=== PATIENT | female | born 1930 | race Caucasian/White ===

== ENCOUNTER 2016-06-21 13:13 | Inpatient (IN) | payer OTHER, MEDICAID ==
[~2016-06-21] VITALS: Ht 162.6 cm; Wt 40.8 kg
[2016-06-21] MEDS: PANTOPRAZOLE 80 MG in NACL 0.9% 100 ML IV SCH (03:44)
[~2016-06-21 13:13] MED LIST: AMLODIPINE BESYL5 MG PO; ASPI-COR81 M1 PO; CLONAZEPAM0.5 M2 PO; LEVOTHYROXIN0.088 M1 PO; VERAPAMIL HCL180 M5 PO; ZOCOR20 M1 PO
[2016-06-21 13:23] VITALS: BP 121/68
--- NOTE | 2016-06-21 14:23 | NUR ---
Patient ambulated to bed 03.
--- NOTE | 2016-06-21 14:27 | NUR ---
LAB AT BEDSIDE.
--- NOTE | 2016-06-21 14:40 | NUR ---
PT REFERRED FROM PCP FOR EVALUATION OF ABNORMAL LABS, HGB 5.0. HX HTN, ANXIETY, MULTIPLE DVT'S IN LEFT LEG, ON COUMADIN; DENIES N/V/D; SKIN IS PINK/WARM/DRY; AAOX4 WITH EVEN AND STEADY GAIT; LUNGS CLEAR BL; HR EVEN AND REGULAR; PT DENIES ANY FEVER, CP, SOB, OR COUGH AT THIS TIME; PATIENT STATES LOW BACK PAIN OF 5/10 AT THIS TIME; VSS; PATIENT POSITIONED FOR COMFORT; HOB ELEVATED; BEDRAILS UP X2; BED DOWN. ER MD MADE AWARE OF PT STATUS.
--- NOTE | 2016-06-21 14:42 | NUR ---
Dr. Hester evaluating patient at bedside.
[2016-06-21] MEDS ORDERED: NACL 0.9% 250 ML IV ONE (15:00)
[2016-06-21] MEDS ORDERED: NACL 0.9% 500 ML IV ONE (15:00)
--- NOTE | 2016-06-21 15:45 | NUR ---
TRIED TO GIVE REPORT, WILL CALL BACK IN 10 MIN PER RN RAMIN
--- NOTE | 2016-06-21 16:00 | NUR ---
Patient will be admitted to care of DR BERNAL. Admited to TELE. Will go to room 111A. Belongings list completed. Report to RICKY FAUSTIN.
--- NOTE | 2016-06-21 16:01 | NUR ---
bedpan provided bu pt unable to provide urine at this time,
[2016-06-21 16:20] VITALS: BP 130/69
--- NOTE | 2016-06-21 16:20 | NUR ---
PATIENT ARRIVED TO THE UNIT FROM ER VIA GURNEY. PATIENT AWAKE, ALERT AND ORIENTED. NO S/S OF DISTRESS NOTED. PATIENT IS HARD OF HEARING. PATIENT'S SON PRESENT AT BEDSIDE. SKIN IS INTACT. IV LINE NOTED TO THE LEFT AC WITH IVF INFUSING WELL. PATIENT PLACED ON TELE MONITORING. BED LOWERED WITH CALL LIGHT WITHIN REACH. WILL CONTINUE TO MONITOR
--- NOTE | 2016-06-21 16:33 | NUR ---
SPOKE TO DR BERNAL. ORDERS RECEIVED
--- NOTE | 2016-06-21 17:25 | NUR ---
BLOOD TRANSFUSION INITIATED
--- NOTE | 2016-06-21 17:40 | NUR ---
BLOOD TRANSFUSION IN PROGRESS. NO S/S OF DISTRESS NOTED. VITAL SIGNS WITHIN NORMAL LIMITS
[2016-06-21] MEDS ORDERED: MAGNESIUM CITRATE 300 ML BTL PO SCH (18:40)
[2016-06-21] MEDS ORDERED: ACETAMINOPHEN 325 MG TAB PO PRN (18:50)
[2016-06-21] MEDS ORDERED: ONDANSETRON 4 MG/2 ML VIAL IVP PRN (18:50)
[2016-06-21] MEDS ORDERED: MORPHINE SULFATE 4 MG/ML SYR IVP PRN (18:50)
--- NOTE | 2016-06-21 18:54 | NUR ---
PATIENT SEEN BY DR BERNAL
--- NOTE | 2016-06-21 19:30 | NUR ---
PATIENT REPORT GIVEN AT BEDSIDE. PATIENT ENDORSED IN STABLE CONDITION
[2016-06-21] MEDS: DEXT 5% /NACL 0.9% 1,000 ML IV SCH (19:45)
--- NOTE | 2016-06-21 19:45 | NUR ---
RECEIVED PT IN STABLE CONDITION FROM AM NURSE. AWAKE,ALERT AND ORIENTED X4. TELE PT. FAMILY MEMBER AT BEDSIDE. NO C/O ANY DISCOMFORT NOR PAIN NOTED. BEDREST. WITH IST UNIT PRBC INFUSING WELL ON THE LT AC#20. NO REACTION TO THE BLOOD AT THIS TIME. PLAN OF CARE DISCUSSED AND VERBALIZED UNDERSTANDING. CALL LIGHT PLACED WITHIN EASY REACH. INSTRUCTED TO CALL FOR ANY ASSISTANCE. WILL CONTINUE TO MONITOR.
[2016-06-21 20:00] VITALS: BP 156/85
--- NOTE | 2016-06-21 20:15 | NUR ---
US ABDOMEN AND BLE VENOUS DOPPLER DONE AT BEDSIDE. WILL FOLLOW UP RESULTS.
--- NOTE | 2016-06-21 20:40 | NUR ---
1ST UNIT PRBC TRANSFUSION DONE. V/S TAKEN AND STABLE. NO PAIN NOTED. NO REACTION NOTED ALSO.
[2016-06-21] MEDS ORDERED: clonazePAM 0.5 MG TAB PO SCH (21:00)
[2016-06-21] MEDS ORDERED: FERRIC GLUCONATE 125 MG in NACL 0.9% 100 ML IV SCH (21:00)
--- NOTE | 2016-06-21 21:10 | NUR ---
DR. ZUNIGA WAS PAGED FOR RESULT OF VENOUS DOPPLER BLE. DR. GREENBERG EMBOSSING TOOLSETTER. CALLED BACK AND MADE AWARE OF THE RESULT. NO ORDER MADE.
--- NOTE | 2016-06-21 21:30 | NUR ---
STOOL SPECIMEN FOR OB COLLECTED AND SENT TO LAB.
--- NOTE | 2016-06-21 21:50 | NUR ---
2ND UNIT PRBC STARTED AFTER VERIFIED WITH MIRN AND WITH PT. WILL CONTINUE TO MONITOR DURING TRANSFUSION
[2016-06-22] VITALS: BP 151/78
--- NOTE | 2016-06-22 00:30 | NUR ---
CALLED PHARMACY TO CLARIFY ORDERS FOR PROTONIX IV AND FERRLECIT IV. PHARMACIST SAID IF NOT AVAILABLE ,IT IS OK NOT TO GIVE TONIGHT. WILL WAIT FOR PHARMACY IN AM FOR THEY STILL HAVE TO CLARIFY ALSO PROTONIX ORDER. RICKY WELLS CHARGE MADE AWARE .
[2016-06-22] MEDS ORDERED: PANTOPRAZOLE 40 MG INJ VIAL IVP ONE (03:35)
[2016-06-22] MEDS: PANTOPRAZOLE 80 MG in NACL 0.9% 100 ML IV SCH (03:44)
--- NOTE | 2016-06-22 03:44 | NUR ---
PROTONIX IV AT 10 ML /HR STARTED ORDERED ON THE LT WRIST #22.
[2016-06-22 04:15] VITALS: BP 142/90
[2016-06-22] MEDS: DEXT 5% /NACL 0.9% 1,000 ML IV SCH (05:55)
--- NOTE | 2016-06-22 07:20 | NUR ---
ENDORSED PT IN STABLE CONDITION TO AM NURSE.
--- NOTE | 2016-06-22 07:20 | NUR ---
RECEIVED REPORT FROM NIGHT NURSE. PT IS AAOX4, ON ROOM AIR, IV TO LEFT AC 20G INFUSING WELL, LEFT WRIST 22G SALINE LOCK PATENT AND INTACT. SKIN INTACT. INITIAL ASSESSMENT COMPLETED. REVIEWED PLAN OF CARE WITH PT AND SON BOTH VERBALIZED UNDERSTANDING. ALL NEEDS MET. CALL LIGHT WITHIN REACH. WILL CONTINUE TO MONITOR. Addendum: 06/22/16 at 0850 by Sydnee Carreno RN LEFT WRIST 22G RUNNING PROTONIX, AT 10ML/HR. INFUSING WELL.
[2016-06-22 08:00] VITALS: BP 142/85
[2016-06-22] MEDS: LEVOTHYROXINE 0.088 MG TAB PO SCH (08:10)
[2016-06-22] MEDS: amLODIPine 5 MG TAB PO SCH (08:10)
[2016-06-22] MEDS: SIMVASTATIN 20 MG TAB PO SCH (08:10)
[2016-06-22] MEDS: LACTULOSE 20 GM/30 ML UDC PO SCH ×2 (08:10→13:00)
--- NOTE | 2016-06-22 08:40 | NUR ---
PATIENT HAS BEEN SCREENED AND CATEGORIZED HIGH NUTRITION RISK. PATIENT WILL BE SEEN WITHIN 1-2 DAYS OF ADMISSION. 06/22/16-06/23/[address]
[2016-06-22] MEDS ORDERED: VERAPAMIL 180 MG TABER PO SCH (09:00)
[2016-06-22] MEDS ORDERED: PANTOPRAZOLE 40 MG INJ VIAL IVP SCH (09:00)
--- NOTE | 2016-06-22 09:34 | NUR ---
ALL NEEDS MET. CALL LIGHT WITHIN REACH. WILL CONTINUE TO MONITOR.
[2016-06-22 11:51] VITALS: BP 129/82
[2016-06-22] MEDS ORDERED: POLYETHYLENE GLYCOL 17 GM/PKT PO SCH (12:00)
[2016-06-22] MEDS ORDERED: FERRIC GLUCONATE 125 MG in NACL 0.9% 100 ML IV SCH ×2 (12:00→14:33)
--- NOTE | 2016-06-22 12:07 | NUR ---
PT LEFT UNIT TO OR IN STABLE CONDITION
[2016-06-22] MEDS ORDERED: fentaNYL 0.05 MG/ML VIAL ONE ×2 (12:24→12:43)
[2016-06-22] MEDS ORDERED: MIDAZOLAM 2 MG/2 ML VIAL ONE ×3 (12:24→12:43)
[2016-06-22] MEDS ORDERED: diphenhydrAMINE 50 MG/ML VIAL ONE (12:43)
[2016-06-22] MEDS ORDERED: SENNA 8.6 MG TAB PO SCH (13:00)
--- NOTE | 2016-06-22 14:00 | NUR ---
PT RETUNED TO UNIT FROM OR. VS 98.1, BP 149/88, HR 91 PULSE OX 95%. ALL NEEDS ME. CALL LIGHT WITHIN REACH. WILL CONTINUE TO MONITOR
[2016-06-22] MEDS ORDERED: fentaNYL 0.05 MG/ML VIAL IVP ONE (14:20)
[2016-06-22] MEDS ORDERED: MIDAZOLAM 2 MG/2 ML VIAL IVP ONE (14:20)
[2016-06-22 15:56] VITALS: BP 149/67
[2016-06-22] MEDS: FERROUS SULFATE 325 MG TABEC PO SCH (16:35)
--- NOTE | 2016-06-22 16:43 | NUR ---
DUE MEDICATIONS GIVEN. ALL NEEDS MET. CALL LIGHT WITHIN REACH.
--- NOTE | 2016-06-22 17:35 | NUR ---
PT CURRENTLY RESTING IN BED. SON AT BEDSIDE. ALL NEEDS MET. CALL LIGHT WITHIN REACH. WILL CONTINUE TO MONITOR.
--- NOTE | 2016-06-22 19:00 | NUR ---
ENDORSED PLAN OF CARE TO NIGHT NURSE. PT IN STABLE CONDITION. .
--- NOTE | 2016-06-22 19:15 | NUR ---
RECEIVED PT IN STABLE CONDITION FROM AM NURSE. AWAKE,ALERT AND ORIENTED X4. WITH HARD OF HEARING ON RT EAR, HAS HEARING AID. ON TELE MONITOR. NO C/O OF ANY DISCOMFORT NOR PAIN NOTED PLAN OF CARE DISCUSSED AND VERBALIZED UNDERSTANDING. HAS IVF PROTONIX INFUSING WELL ON THE LT AC #20. CLEAR AND PATENT. BED ON LOW POSITION. SIDE RAILS UP X2. CALL LIGHT PLACED WITHIN EASY REACH. WILL CONTINUE TO MONITOR.
[2016-06-22 20:00] VITALS: BP 133/74
[2016-06-22] MEDS ORDERED: clonazePAM 0.5 MG TAB PO SCH (21:00)
[2016-06-22] MEDS ORDERED: LACTULOSE 20 GM/30 ML UDC PO SCH (21:00)
--- NOTE | 2016-06-22 21:00 | NUR ---
PT REFUSED TO TAKE LACTULOSE AT THIS TIME. WILL TRY LATER.
--- NOTE | 2016-06-22 23:00 | NUR ---
STILL AWAKE, REQUESTED FOR SOME CRACKERS AND MILK. NO N/V NOTED.
[2016-06-23] VITALS: BP 137/71
[2016-06-23] MEDS: HYDROcodone/APAP 5/325 MG 1 TAB TAB PO PRN ×2 (00:25→09:18)
--- NOTE | 2016-06-23 00:45 | NUR ---
ENDORSED PT IN STABLE CONDITION TO RICKY DAMON FOR CONTINUITY OF CARE.
--- NOTE | 2016-06-23 00:45 | NUR ---
RECEIVED REPORT FROM GILLIAN RN AT BEDSIDE. PT IS ALERT AWAKE ORIENTED X3 WITH PERIOD CONFUSION SOMETIMES. INITIAL ASSESSMENT DONE. NO S/S OF RESPIRATORY DISTRESS OR SOB NOTED. NO C/O PAIN OR ANY DISCOMFORT AT THIS TIME. PLAN OF CARE REVIEWED TO PT AND VERBALIZED UNDERSTANDING AND NEED TO BE REINFORCED. CALL LIGHT WITHIN REACH. WILL CONTINUE TO MONITOR.
[2016-06-23 04:00] VITALS: BP 134/68
--- NOTE | 2016-06-23 05:00 | NUR ---
AM CARE RENDERED. BED LINEN CHANGED. INSTRUCTED PT TO REPOSITION. KEPT CLEAN AND DRY. CALL LIGHT WITHIN REACH. WILL CONTINUE TO MONITOR.
[2016-06-23] MEDS: LEVOTHYROXINE 0.088 MG TAB PO SCH (05:37)
--- NOTE | 2016-06-23 07:30 | NUR ---
PT HAS NO S/S OF ANY DISCOMFORT. PLAN OF CARE ENDORSE TO AM SHIFT NURSE FOR CONTINUITY OF CARE.
--- NOTE | 2016-06-23 07:31 | NUR ---
RECEIVED REPORT FROM THE BICYCLE RENTAL CLERK NURSE AT BEDSIDE FOR CONTINUITY OF CARE. PT IS SOUND ASLEEP. NO SIGNS OF DISTRESS. WILL COME BACK AND ASSESS HER.
--- NOTE | 2016-06-23 07:50 | NUR ---
I WOKE UP PT WITH SOME SHAKING. SHE WOKE UP AND ASKED FOR HER HEARING AID. LOCATED THEM IN HER BED UNDER THE COVERS. PT IS ALERT AND ORIENTED. SON JUST WALKED IN. PT'S BREAKFAST IS HERE WELL. PT V/S WITHIN NORMAL RANGE. 94% OX SAT ON RA. NOTED IV, R FA 22G SL. SHE HAS THE IMPRESSION SHE IS LEAVING TODAY. WE WILL SEE IF THERE IS AN ORDER. ALL HER LAB VALUES ARE WITHIN NORMAL RANGE. WILL LET HERE EAT. SON AT BEDSIDE. WILL CONTINUE TO MONITOR PT.
[2016-06-23 08:00] VITALS: BP 118/52
[2016-06-23] MEDS ORDERED: FERRIC GLUCONATE 125 MG in NACL 0.9% 100 ML IV SCH (09:00)
[2016-06-23] MEDS: SIMVASTATIN 20 MG TAB PO SCH (09:17)
[2016-06-23] MEDS: amLODIPine 5 MG TAB PO SCH (09:18)
[2016-06-23] MEDS: FERROUS SULFATE 325 MG TABEC PO SCH (09:19)
--- NOTE | 2016-06-23 09:20 | NUR ---
ADMINISTERED MORNING MEDS. PT TOLERATED WELL. SON AT BEDSIDE. ANSWERED ALL QUESTIONS REGARDING HER MEDS. PT VERBALIZED UNDERSTANDING. WILL CONTINUE TO MONITOR HER.
--- NOTE | 2016-06-23 10:44 | NUR ---
SUPERVISOR FEED MILL IS DOING PT'S ADL'S. PT IS TOLERATING WELL. NOTED THAT HER BOTTOM, SACRAL AREA IS RED. WILL ASK MD TO ORDER SOME Z GUARD CREAM.
[2016-06-23 12:00] VITALS: BP 120/67
--- NOTE | 2016-06-23 12:56 | NUR ---
FAMILY IS VISITING. PT IS AWAKE AN ORIENTED. POSSIBLE D/C TODAY PER TOMY. NO ORDERS YET. NO SIGNS OF DISTRESS. WILL CONTINUE TO MONITOR PT.
--- NOTE | 2016-06-23 13:35 | NUR ---
06/23/16 RD INITIAL ASSESSMENT COMPLETED PLEASE REFER TO NUTRITION ASSESSMENT UNDER CARE ACTIVITY FOR ESTIMATED NUTRITIONAL NEEDS. RD RECOMMENDATIONS: CONTINUE ON CARDIAC DIET TOLERATED. --PT MEETING 100% OF ESTIMATED KCAL AND PROTEIN NEEDS ENCOURAGE INCREASED PO INTAKE. RD WILL ADD HEALTH SHAKE BID TO TRAY D/T PT UNDERWEIGHT. 4. RD WILL F/U 3-5 DAYS; MODERATE RISK. DUSTIN RHODES RD
--- NOTE | 2016-06-23 13:58 | NUR ---
PT SITTING IN BED. FINISHED HER LUNCH TRAY... 80%. PT EATS WELL. GOOD APPETITE. HAS THE TV ON. NO SIGNS OF DISTRESS. NO COMPLAINTS AT THIS TIME. CALL LIGHT WITHIN REACH. WILL CONTINUE TO MONITOR PT.
--- NOTE | 2016-06-23 14:28 | NUR ---
SON IS BACK AT PT'S BEDSIDE. SON HAS A FLIGHT THIS AFTERNOON. HE NEEDS TO TAKE HER HOME BY 3:30PM. I EXPLAINED TO HIM I DO NOT HAVE A DISCHARGE ORDER AND DR BERNAL HAS NOT BEEN IN YET. I ALSO EXPLAINED THAT SHE HAS A RIGHT TO AMA IF SHE NEEDS TO GO. SON IS AWARE. HE WILL WAIT UNTIL 3PM AND LET ME KNOW WHAT HE WANTS TO DO. Addendum: 06/23/16 at 1433 by Karen Ward RN SON ALSO WANTED TO SPEAK TO A COMMUTATOR ASSEMBLER. I CALLED [employer]. SHE WILL BE HERE TO SPEAK TO FAMILY MEMBER.
[2016-06-23] MEDS ORDERED: Z-GUARD PASTE TP ONE (14:35)
--- NOTE | 2016-06-23 14:47 | NUR ---
SS NOTE: I SPOKE WITH PT'S SON, VANESA. HE STATED THAT HE WANTED ADDITIONAL INFORMATION ON HOW TO GET [facility] CARE FOR PT. HE ALSO STATED THAT PT IS AGORAPHOBIC AND HAS DIFFICULTY LEAVING THE HOUSE. I EXPLAINED TO VANESA THE PROCESS FOR ART INSTALLER CARE AT A SNF UNDER PT'S [facility]. HE REPORTED THAT HE WOULD HAVE TO DISCUSS THIS WITH HIS SIBLINGS AND FEELS THAT SNF IS TOO DRASTIC OF AN OPTION FOR PT AT THIS POINT. HE ALSO REPORTED THAT PT HAS A CAREGIVER THAT COMES 4 DAYS A WEEK FROM 10AM TO 2PM THROUGH [facility] HOME SU[facility]. I PROVIDED HIM WITH PRIVATE [facility] HOME C[employer]CIES SO THAT PT CAN RECEIVE CARE AT HOME WHEN HER [facility] CAREGIVER IS NOT THERE.
[2016-06-23] MEDS ORDERED: Z-GUARD PASTE TP SCH (14:48)
--- NOTE | 2016-06-23 15:09 | NUR ---
PT SIGNED AMA. DRAW FURNACE TENDER GETTING HER READY TO LEAVE. SON HAS TO CATCH A FLIGHT. NEED TO GET OUT HERE BY 3:30PM. SPOKE TO DR BERNAL. DR. DOLORES HUTCHINSON. ALL PERSONAL BELONGINGS TAKEN AND WHEELED OUT BY MOE.
--- NOTE | 2016-06-23 15:20 | NUR ---
WALKED OUT WITH SON, WITH HER PERSONAL BELONGINGS AND WALKER.
== END 2016-06-23 15:20 | disposition left against medical advice (07) | DRG 812 ==
LOC: MED 13:13 → MTU 15:38
PROVIDERS: ADMIT Internal Medicine Pulmonary Disease; ATTEND Internal Medicine Pulmonary Disease
PROC: 30233N1 Transfusion of Nonautologous Red Blood Cells into Peripheral Vein, Percutaneous Approach (ICD-10-PCS; 2016-06-21)
PROC: 0DB68ZZ Excision of Stomach, Via Natural or Artificial Opening Endoscopic (ICD-10-PCS; principal; 2016-06-22 12:20)
PROC: 0DBL8ZZ Excision of Transverse Colon, Via Natural or Artificial Opening Endoscopic (ICD-10-PCS; 2016-06-22 12:20)
DX: D50.9 Iron deficiency anemia, unspecified (principal); I82.512 Chronic embolism and thrombosis of left femoral vein; E44.1 Mild protein-calorie malnutrition; Z68.1 Body mass index [BMI] 19.9 or less, adult; I10 Essential (primary) hypertension; E03.9 Hypothyroidism, unspecified; K44.9 Diaphragmatic hernia without obstruction or gangrene; K57.90 Diverticulosis of intestine, part unspecified, without perforation or abscess without bleeding; K64.9 Unspecified hemorrhoids; H91.90 Unspecified hearing loss, unspecified ear; K21.9 Gastro-esophageal reflux disease without esophagitis; M19.90 Unspecified osteoarthritis, unspecified site; Z88.8 Allergy status to other drugs, medicaments and biological substances; Z79.899 Other long term (current) drug therapy; Z79.01 Long term (current) use of anticoagulants